=== PATIENT | female | born 1965 | race Caucasian/White ===

== ENCOUNTER 2021-03-22 17:50 | Emergency (ER) | payer OTHER ==
[~2021-03-22] VITALS: Ht 165.1 cm; Wt 75.0 kg
[2021-03-22] MEDS ORDERED: ACETAMINOPHEN 325MG TABLET PO ONE (19:15)
[2021-03-22] MEDS ORDERED: HYDR-4346 MT (21:03)
[2021-03-22 21:14] VITALS: BP 141/81
== END 2021-03-22 21:17 | disposition home or self-care (01) ==
LOC: ER 17:50
DX: S20.211A Contusion of right front wall of thorax, initial encounter (principal); V47.5XXA Car driver injured in collision with fixed or stationary object in traffic accident, initial encounter; Y93.89 Activity, other specified; Y92.410 Unspecified street and highway as the place of occurrence of the external cause
CPT/HCPCS: 71250; 99284